=== PATIENT | male | born 1980 ===

== ENCOUNTER 2025-07-16 05:54 | Day surgery (SDC) | payer OTHER, SELFPAY ==
[2025-07-16] VITALS (11 sets, daily range): BP systolic 141–176; BP diastolic 85–98; BMI 34.8
[2025-07-16] MEDS: NORMOSOL-R/PLASMALYTE-A 1000 IV (06:27)
[2025-07-16] MEDS: TYLENOL 1000 MG PO (06:27)
[2025-07-16] MEDS: CELEBREX 200 MG PO (06:27)
--- NOTE | 2025-07-17 13:04 | OR.RPT ---
Operative Report
Operative Report
Operative Report
Patient Name: Brian Al

Date of Surgery: 07/16/2025
Surgeon: Frank Damon DPM
Assistants: Frank Talavera DPM
Preoperative Diagnosis:
Right Lisfranc fracture-dislocation
Comminuted fracture of the 2nd/3rd metatarsal base
Fracture of medial and lateral cuneiforms
Postoperative Diagnosis:
Right Lisfranc fracture-dislocation
Comminuted fracture of the 2nd/3rd metatarsal base
Fracture of medial and lateral cuneiforms
Procedure Performed:
Open reduction and internal fixation (ORIF) of right Lisfranc injury CPT 81100
2nd and 3rd tarsometatarsal (TMT) arthrodesis with [place] mini-fragment plates CPT 29781
Open reduction and internal fixation of 2nd/3rd metatarsals, medial/lateral cuneiforms CPT 09535 x2, 36229 x2
Anesthesia: General
Estimated Blood Loss: <50 mL
Tourniquet: Pneumatic thigh tourniquet inflated to 325 for 120 minutes
Implants:
[place] mini-fragment plates and screws
4.0 mm Asnis screw (Lisfranc fixation)
Specimen: None
Complications: None
Indications for Procedure
The patient is a 44-year-old male who sustained a right foot injury while hiking approximately 1 week ago resulting in severe Lisfranc injury with 2nd,3rd,4th metatarsal and cuneiform fractures with instability of the Lisfranc joint complex.
Radiographs and CT confirmed displacement and instability of the 2nd and 3rd TMT joints with intra-articular comminution. After discussion of risks, benefits, and alternatives, including nonoperative versus operative management, the patient elected
to proceed with surgical fixation and primary arthrodesis to restore midfoot alignment and stability.
Description of Procedure
After obtaining informed consent, the patient was brought to the operating room and placed supine on the operating table. Following induction of anesthesia, a well-padded thigh tourniquet was applied. The right lower extremity was prepped and draped
in the usual sterile fashion. The limb was exsanguinated and the tourniquet inflated.
A dorsal longitudinal incision was made overlying the 2nd TMT joint and extended proximally toward the Lisfranc interval. Dissection was carried down through subcutaneous tissues with care taken to protect all neurovascular structures. The extensor
tendons were retracted laterally. The 2nd and 3rd TMT joints were exposed. Significant comminution was noted at the base of the 2nd metatarsal with instability of both the 2nd and 3rd TMT joints. The Lisfranc interval was also grossly unstable.
The comminuted fragments of the 2nd metatarsal base were reduced and temporarily fixated with K-wires, and the residual cartilage from the 2nd and 3rd TMT joint surfaces was removed using a combination of sagittal saw and curette. The subchondral
bone was prepared for fusion with curettage, subchondral drilling and fish-scaling until healthy cancellous bone was exposed. All fracture lines of the 2nd/3rd metatarsal and cuneiforms were reduced. The joints were then reduced under direct
visualization, and temporary fixation was placed with K-wires. Fluoroscopy confirmed satisfactory alignment and confucianist of the medial column.
Attention was then turned to definitive fixation. A [place] mini-fragment dorsal plate was contoured and applied across the 2nd TMT joint, fixed with multiple locking and non-locking screws. A second mini-fragment plate was applied across the 3rd
TMT joint in similar fashion. The Lisfranc joint between the medial cuneiform and 2nd metatarsal was then stabilized with a 4.0 mm Asnis screw placed from the 2nd metatarsal base to the medial cuneiform under fluoroscopic guidance. Excellent
compression and stability were achieved. Final fluoroscopic images confirmed anatomic reduction and stable fixation without hardware complications.
The wounds were copiously irrigated with normal saline. Layered closure was performed with 2-0 vicryl for deep tissue, 3-0 vicryl for subcutaneous tissue and 3-0 prolene for skin. Sterile dressings were applied, followed by a well-padded posterior
splint.
The patient tolerated the procedure well with no complications. The tourniquet was deflated with immediate return of capillary refill to the toes. The patient was then awoken from anesthesia and transferred to the PACU in good condition. He will be
strictly non-weightbearing in right lower extremity splint for 2 weeks for incision check.
== END 2025-07-16 12:10 | disposition home or self-care (01) ==
LOC: SDS 05:54
PROVIDERS: ATTENDING PHYSICIAN Student in an Organized Health Care Education/Training Program
DX: S92.321A Displaced fracture of second metatarsal bone, right foot, initial encounter for closed fracture (principal); S92.331A Displaced fracture of third metatarsal bone, right foot, initial encounter for closed fracture; S93.324A Dislocation of tarsometatarsal joint of right foot, initial encounter; S92.221A Displaced fracture of lateral cuneiform of right foot, initial encounter for closed fracture; S92.241A Displaced fracture of medial cuneiform of right foot, initial encounter for closed fracture; X58.XXXA Exposure to other specified factors, initial encounter
CPT/HCPCS: 28730; C1713; 73630; 76000